=== PATIENT | male | born 1990 | race Caucasian/White ===

== ENCOUNTER 2022-05-10 09:11 | Day surgery (SDC) | payer BC, SELFPAY ==
--- NOTE | 2022-05-10 09:19 | HP.PCM_ITS ---
History and Physical Date of Admission: 05/10/22 Intake Vital Signs ? 03/17/2218:14 04/08/2214:58 Height 6 ft 0.5 in 6 ft 1 in Weight: 196 lb 193 lb 4 oz BMI 26.2 25.4 BP 118/70 128/87 H Blood Pressure Location Rt brachial Rt brachial Position Sitting Sitting Respiration 18 16 Pulse 94 107 H Pulse Source Doppler Monitor Temp 97.9 F 97.4 F L Temp Source ? Temporal Pulse Oximetry (%) 96 97 Oxygen Delivery Method room air room air Intake Visit Reasons:?COLONOSCOPY FOR BLOOD IN STOOL Chief Complaint: Blood in stool, family hx colon [employer] Required: No Is patient in pain?: No Allergies penicillin V Allergy (Intermediate, Verified 04/08/22 15:00) Hivesamoxicillin Adverse Reaction (Severe, Verified 04/08/22 15:00) black stools Medications NK? 04/08/22 [History Confirmed 04/08/22] PFSH Medical History?(Updated 03/17/22 @ 18:36 by Carrie Jackson NP, RN PROCEDURES-C) Foot fracture Seasonal allergies Surgical History?(Updated 04/08/22 @ 14:58 by Naye Monday) History of wisdom tooth extraction Family History? Other Colon cancer Ovarian cancer Rectal cancer Social History?(Updated 04/08/22 @ 14:58 by Naye Monday) Smokeless tobacco user:? chewing tobacco alcohol intake:? current details:? occasional substance use type:? does not use HPI HPI HPI: Patient is a 31-year-old male with significant family history of colon cancer.? The patient's mother from colon cancer in her 50s and the patient's uncle had over 10 polyps in his colon and his cousin had polyps as well.? His brother also had adenomatous polyps.? Patient notes for the last 90 days he has had occasional blood in his stool which is bright red.? He also feels that there is pain with some of these bowel movements. ROS General General: Yes fatigue; No weight change, appetite, colon cancer, breast cancer or weakness HEENT HEENT: No difficulty swallowing, eye injury, eye surgery, swollen glands or hoarseness Endo Endocrine: No thyroid disease, diabetes mellitus, thyroid cancer, Hair loss, heat intolerance or cold intolerance Skin Skin: No rash or changing moles Musc Musculoskeletal: No back problems, arthritis, rheumatoid arthritis, gout or joint pain Cardio Cardiovascular: No murmur, pacemaker, heart disease, atrial fibrillation, high blood pressure, heart attack, heart stent, palpitations, shortness of breat with exertion or chest pain Psych Psychiatric: No depression, anxiety or hearing voices Resp Respiratory: No shortness of breath, No sleep apnea, No cough, No COPD, No asthma, No emphysema and No wheezing Gastro Gastrointestinal: No abdominal pain, No nausea or vomiting, No diarrhea, No constipation, Yes blood in stool, No acid reflux, No hemorrhoids, No ulcers, No gallbladder problem and No black,tarry stools Vince Hematologic: No blood thinners, No blood disorders, No bleeding, No anemia and No blood clots Neuro Neurologic: No system reviewed and no additional complaints, except as documented, No as per HPI, No abnormal gait, No abnormal hearing, No abnormal movements, No abnormal speech, No behavioral changes, No burning sensations, No confusion, No convulsions, No disequilibrium, No dizziness, No localized weakness, No frequent falls, No headache(s), No lack of coordination, No loss of vision, No memory loss, No numbness, No other visual disturbances, No radicular pain, No restless legs, No sensory deficit, No syncope, No tingling, No tremor(s), No weakness and No other Exam Const General: cooperative Orientation: alert and oriented x3 [facility] Head: normal to inspection Neck Neck: normal visual inspection and full ROM Chest Chest palpation & inspection: normal inspection of the chest Resp Effort & Inspection: normal respiratory effort Auscultation: clear to auscultation bilaterally Cardio Rate: regular rate Rhythm: regular rhythm GI Inspection: non-distended Palpation: soft and nontender Skin General: no rashes or lesions noted Neuro General: patient alert and patient oriented x3 Extrem General: full ROM Psych Appearance: grossly normal Mental Status: mental status grossly normal Assessment and Plan Assessment and Plan (1) Blood in stool, julio: ?Status:?Acute ?Plan: Patient has been having blood in the stool for the last 90 days.? He has significant family history of colon cancer and polyps.? Patient is here to discuss colonoscopy and I recommend that he undergo this and have repeat [facility] colonoscopies every 5 years.? Patient also seems to have a fissure and I will examine for this during colonoscopy.? He says that he feels that when he does have a hard stool that that is when the blood happens and he feels pain with the defecation. I explained endoscopy in detail to the patient.? I explained the risks including but not limited to stroke or heart attack with anesthesia, perforation of the GI tract, bleeding, infection.? I explained that any of these could necessitate further emergency surgery.? The patient understands and all questions were answered sufficiently.? The patient wishes to proceed with procedure. Martin Pinto MD Pager: [facility] [address] [place] [address], [address] [place] [address] Office: I have re-examined the patient. There are no clinical changes since date of exam.
[2022-05-10 09:58] VITALS: BP 128/76; PULSE 106; RESP 16; TEMP 36.9; O2SAT 98; BMI 25.6
[2022-05-10] MEDS: Lactated Ringers 1,000 ML 15 ML IV (10:15)
[2022-05-10 10:55] VITALS: BP 128/76; BP 129/84; PULSE 99; RESP 18; TEMP 37.2; O2SAT 99
[2022-05-10 11:00] VITALS: BP 118/80; BP 128/76; PULSE 96; RESP 18; O2SAT 100
[2022-05-10 11:05] VITALS: BP 110/81; BP 128/76; PULSE 95; RESP 18; O2SAT 100
[2022-05-10 11:09] VITALS: BP 121/83; BP 128/76; PULSE 75; RESP 18; TEMP 36.8; O2SAT 100
--- NOTE | 2022-05-10 11:21 | OP.CCLET_ITS ---
05/10/2022 No Primary Care Physician Re : Colonoscopy procedure for Jan Lopez Dear Care Physician This procedure was performed on Tuesday, May 10, 2022. My impressions and recommendations are as follows: Impressions : - The entire examined colon is normal on direct and retroflexion views. - No specimens collected. Recommendations : - Discharge patient to home. - Resume previous diet. - Continue present medications. - Repeat colonoscopy at age 51 for screening purposes. My findings are described in the full procedure note, which is enclosed. If I can be of further assistance, please feel free to contact me at Doctor phone number(s): , Work: . Sincerely, Martin Pinto MD 05/10/2022 11:20:39 AM This report has been signed electronically.
--- NOTE | 2022-05-10 11:21 | OP.COLON_ITS ---
Patient Name: Jan Lopez Procedure Date: 05/10/2022 10:24 AM Date of : 1990 Age: 31 Procedure: Colonoscopy Indications: Rectal bleeding Providers: Martin Pinto MD Medicines: Monitored Anesthesia Care Patient Profile: This is a 31 year old male. Refer to note in patient chart for documentation of history and physical. Last Colonoscopy: none. The patient's first colonoscopy is today. Complications: No immediate complications. Procedure: Pre-Anesthesia Assessment: - Prior to the procedure, a History and Physical was performed, and patient medications and allergies were reviewed. The patient's tolerance of previous anesthesia was also reviewed. The risks and benefits of the procedure and the sedation options and risks were discussed with the patient. All questions were answered, and informed consent was obtained. Prior Anticoagulants: The patient has taken no previous anticoagulant or antiplatelet agents. After reviewing the risks and benefits, the patient was deemed in satisfactory condition to undergo the procedure. After I obtained informed consent, the scope was passed under direct vision. Throughout the procedure, the patient's blood pressure, pulse, and oxygen saturations were monitored continuously. The pediatric colonoscope was introduced through the anus and advanced to the cecum, identified by appendiceal orifice and ileocecal valve. The colonoscopy was performed without difficulty. The patient tolerated the procedure well. The quality of the bowel preparation was good. Scope In: 10:38:14 AM Scope Withdrawal Time 0 hours 5 minutes 18 seconds Scope Out: 10:49:34 AM Total Procedure Duration Time 0 hours 11 minutes 20 seconds Findings: The entire examined colon appeared normal on direct and retroflexion views. Impression: - The entire examined colon is normal on direct and retroflexion views. - No specimens collected. Recommendation: - Discharge patient to home. - Resume previous diet. - Continue present medications. - Repeat colonoscopy at age 51 for screening purposes. Procedure Code(s): --- Professional --- 46442, Colonoscopy, flexible; diagnostic, including collection of specimen(s) by brushing or washing, when performed (separate procedure) Diagnosis Code(s): --- Professional --- K62.5, Hemorrhage of anus and rectum CPT copyright 2017 [employer]. All rights reserved. The codes documented in this report are preliminary and upon tube puller review may be revised to meet current compliance requirements. Martin Pinto MD 05/10/2022 11:20:39 AM This report has been signed electronically. Number of Addenda: 0 Note Initiated On: 05/10/2022 10:24 AM
[2022-05-10 11:24] VITALS: BP 128/76
== END 2022-05-10 11:27 | disposition home or self-care (01) ==
LOC: EN 09:15 → AC 09:16
PROVIDERS: Visit Provider Surgery
PROC: 0DJD8ZZ Inspection of Lower Intestinal Tract, Via Natural or Artificial Opening Endoscopic (ICD-10-PCS; CPT 45378; principal; 2022-05-10 10:25)
DX: K62.5 Hemorrhage of anus and rectum (principal); Z80.0 Family history of malignant neoplasm of digestive organs; Z83.71 Family history of colonic polyps
CPT/HCPCS: 45378; J7120; J2405

== ENCOUNTER → 2023-02-16 | Outpatient (CLI) | payer BC, SELFPAY ==
[2023-02-16 10:18] LABS: Absolute Lymphocyte Count 0.87 X10^3/uL (0.83-4.51); Absolute Neutrophil Count 1.9 X10^3/uL (2.0-7.7); Basophil# 0.04 X10^3/uL; Basophil% 1.2 % (0-1); Eosinophil# 0.09 X10^3/uL; Eosinophils% 2.7 % (0-5); Hematocrit 41.9 % (40-54); Hemoglobin 14.3 g/dL (13.0-16.5); Lymphocyte # 0.87 X10^3/ul (0.83-4.51); Lymphocyte % 26.3 % (19-41); Mean Corp Hgb Conc 34.1 g/dL (32-36); Mean Corpuscular Hgb 33.4 pg (27.0-32.0); Mean Corpuscular Volume 97.9 fL (80-94); Mean Platelet Vol. 11.4 fl (6.2-12.0); Monocyte# 0.44 X10^3/uL; Monocyte% 13.3 % (0-10); NRBC Flagged by Analyzer 0 % (0-5); Neutrophil # 1.86 X10^3/uL (2.7-7.7); Neutrophil % 56.2 % (47-70); Platelet Count 171 K/mm3 (150-450); RBC Distribution Width SD 46.3 fl (35.1-43.9); Red Blood Count 4.28 M/mm3 (4.6-6.2); White Blood Count 3.3 K/mm3 (4.4-11.0)
[2023-02-16 10:50] LABS: ALB/GLOB Ratio 1.1 RATIO (0.9-2.4); AST(SGOT) 63 U/L (15-37); Alanine Aminotransfer ALT/SGPT 50 U/L (16-61); Albumin, Serum 3.9 g/dL (3.2-5.0); Alkaline Phosphatase 59 U/L (45-117); Anion Gap 10 (5-15); BUN 5 mg/dL (7-18); BUN/Creat Ratio 7.3 RATIO (10-20); Chloride 103 mmol/L (98-107); Cholesterol 212 mg/dL (200); Creatinine, Serum 0.69 mg/dL (0.70-1.30); EST Glomerular Filtration Rate 143 mL/min (>60); Est Glom Filt Rate - Afr Amer 173 mL/min (>60); Globulin 3.6 g/dL (2.2-4.2); Glucose 80 mg/dL (74-106); High Density Lipoprotein 83 mg/dL; Potassium 3.7 mmol/L (3.5-5.1); Protein, Total 7.5 g/dL (6.4-8.2); Sodium Level 142 mmol/L (136-145); Thyroid Stim Hormone (TSH) 1.92 uIU/mL (0.358-3.74); Triglycerides 179 mg/dL; Very Low Density Lipoprotein 36 mg/dL (5-40)
== END | disposition home or self-care (01) ==
LOC: MTLAB 07:04
PROVIDERS: PCP Family Medicine; Visit Provider Family Medicine
DX: N52.9 Male erectile dysfunction, unspecified (principal); Z13.1 Encounter for screening for diabetes mellitus; Z13.220 Encounter for screening for lipoid disorders; T14.8XXA Other injury of unspecified body region, initial encounter
CPT/HCPCS: 36415; 80053; 80061; 84443; 85025